=== PATIENT | female | born 1970 | race Caucasian/White ===

== ENCOUNTER 2018-11-12 11:16 | Emergency (ER) | payer BC ==
[2018-11-12 11:37] VITALS: BP 138/81
[2018-11-12] MEDS ORDERED: Tetan/Diph/Pertus SYR(Tdap)* 0.5 ML SYR(BOOSTRIX) use SYR IM ONE (11:39)
[2018-11-12] MEDS ORDERED: Fluorescein Sodium TOPICAL* 1 MG TEST STRIP OPHTHALMIC ONE (11:40)
[2018-11-12] MEDS ORDERED: Tetracaine 0.5% OPTH.SOL 4 ML* 1 DROP BTL ONE (11:45)
--- NOTE | 2018-11-12 11:46 | UC ---
Eye Complaint HPI - HPI Summary HPI Summary: PT STATES SHE AWOKE WITH HER R EYE CRUSTED SHUT AND A FB SENSATION UNDER THE UPPER LID. SHE "GENTLY WIPED AWAY THE CRUST" AND NOTED HER R EYE TO BE RED AND SENSITIVE TO LIGHT. HER L EYE FEELS FINE. SHE DENIES FEVER, URI AND CONTACT USE. SHE DOES HAVE DRY EYE AND USES RESTASIS. - History of Current Complaint Chief Complaint: UCEye Stated Complaint: RT EYE CONCERN Time Seen by Provider: 11/12/18 11:24 Hx Obtained From: Patient Hx Last Menstrual Period: hysterectomy Timing: Constant Pain Intensity: 3 Aggravating Factor(s): Light Alleviating Factor(s): Darkness Associated Signs And Symptoms: Positive: Photophobia, Drainage (Clear). Negative: Vision Impairment Bilateral, Fever, Swelling - Risk Factors Penetrating Injury Risk Factor: Negative Acute Glaucoma Risk Factors: Eye Inflammation Optic Artery Occlusion Risk Factors: Negative - Allergies/Home Medications Allergies/Adverse Reactions: Allergies Allergy/AdvReac Type Severity Reaction Status Date / Time azithromycin Allergy Hives Verified 11/12/18 11:29 bee venom protein (honey bee) Allergy Anaphylatic Verified 11/12/18 11:29 Shock morphine Allergy Hives Verified 11/12/18 11:29 codeine AdvReac Vomiting Verified 11/12/18 11:29 ketorolac [From Toradol] AdvReac Dizziness Verified 11/12/18 11:29 meclizine AdvReac Nausea Verified 11/12/18 11:29 oxycodone AdvReac Vomiting Verified 11/12/18 11:29 Home Medications: Home Medications EPINEPHrine [Epipen] 0.3 mg IM SEE INSTRUCTIONS PRN 11/12/18 [History Confirmed 11/12/18] Ibuprofen TAB* [Advil TAB*] 400 mg PO Q6H PRN 11/12/18 [History Confirmed ] LoraTADine TAB(NF) [Claritin 10 MG TAB(NF)] 10 mg PO DAILY 11/12/18 [History Confirmed 11/12/18] PARoxetine HCL TAB* [Paxil TAB*] 20 mg PO BEDTIME 11/12/18 [History Confirmed ] Tetrahydrozoline HCl [Eye Drops] 2 drop BOTH EYES BID 11/12/18 [History Confirmed 11/12/18] PMH/Surg Hx/FS Hx/Imm Hx - Additional Past Medical History Additional PMH: allergies, dry eye Psychological History: Depression - Surgical History Surgical History: Yes Surgery Procedure, Year, and Place: Hysterectomy, 2012, [facility]; Left Ear Tube, ~ 2011, [facility]; Cholecystectomy, 1989, [facility] - Family History Known Family History: Positive: Other - [place] FMH of thyroid disorder - Social History Occupation: Employed Full-time Alcohol Use: Rare Substance Use Type: None Smoking Status (MU): Heavy Every Day Tobacco Smoker Type: Cigarettes Amount Used/How Often: 1/2 PPD Length of Time of Smoking/Using Tobacco: On and Off for 25 Years Have You Smoked in the Last Year: Yes - Immunization History Most Recent Tetanus Shot: 10/23/14 Review of Systems All Other Systems Reviewed And Are Negative: No Constitutional: Negative: Fever, Chills Skin: Negative: Negative, Rash Eyes: Positive: Drainage, Eye Redness, Photophobia. Negative: Blurred Vision, Diplopia ENT: Negative: Sore Throat, Ear Ache, Sinus Congestion Neurological: Negative: Headache Physical Exam Triage Information Reviewed: Yes Appearance: Well-Appearing Vital Signs: Initial Vital Signs Temp 98.5 F 11/12/18 11:25 Pulse 78 11/12/18 11:25 Resp 18 11/12/18 11:25 BP 138/81 11/12/18 11:25 Pulse Ox 99 11/12/18 11:25 Vital Signs Reviewed: Yes Eyes: Positive: Other: - no auricular adenopathy. no periorbital edema or rash. vision uncorrected OD 20/40 OU 20/20 os 20/20. conjunctiva R is injected, L is clear. PERRL, EOMI. R is photophobic. AC's clear. Lids on R everted and no FB's seen. R Globe not firm or bulding. Tetracaine drop R eye then stain and no uptake with cary lamp. some relief from discomfort post tetracaine. ENT: Positive: Pharynx normal, TMs normal. Negative: Nasal congestion, Nasal drainage Neck: Positive: Supple, Nontender, No Lymphadenopathy Musculoskeletal: Positive: ROM Intact Neurological: Positive: Alert Psychological: Positive: Age Appropriate Behavior Skin Exam: Normal Skin: Negative: Rashes Eye Complaint Course/Dx - Course Course Of Treatment: Pt's ophthalmology office(Dr Nuñez) called and he is OOT until Saturday. They advise theat Dr Mcleod is providing some coverage thus I called that office and they will see pt today. she is to arrive at 1pm. Pt agrees to this f/u. - Differential Dx/Diagnosis Differential Diagnosis/HQI/PQRI: Other - no FB indentified. no uptake of stain. doubt glaucoma. possibly dry eye related. needs opthamology evaluation. Provider Diagnosis: Conjunctivitis, Photophobia of right eye, Pain, eye, right Discharge - Sign-Out/Discharge Documenting (check all that apply): Patient Departure All imaging exams completed and their final reports reviewed: No Studies - Discharge Plan Condition: Stable Disposition: HOME Patient Education Materials: Conjunctivitis (ED), Photophobia (ED) Referrals: Harsha PETERS,Katrina [Medical Doctor] - Additional Instructions: FOLLOW UP TODAY AT 1PM SCHEDULED BY THIS FACILITY - Billing Disposition and Condition Condition: STABLE Disposition: Home
== END 2018-11-12 12:18 | disposition home or self-care (01) ==
LOC: UCCORT 11:16
DX: H10.9 Unspecified conjunctivitis (principal); H53.141 Visual discomfort, right eye; H57.11 Ocular pain, right eye; Z88.1 Allergy status to other antibiotic agents; F32.9 Major depressive disorder, single episode, unspecified; F17.210 Nicotine dependence, cigarettes, uncomplicated
CPT/HCPCS: 99212; A9270-GY; G0463